=== PATIENT | male | born 1985 | race Caucasian/White ===

== ENCOUNTER 2021-08-04 18:32 | Emergency (ER) | payer MEDICAID ==
[~2021-08-04] VITALS: Ht 177.8 cm; Wt 81.8 kg
[2021-08-04] MEDS ORDERED: normal saline 1000ML IV soln IVB STA (19:14)
[2021-08-04] MEDS ORDERED: diphenhydrAMINE 50 mg/ml inj IV ONE (19:15)
[2021-08-04] MEDS ORDERED: famotidine/PF 10 mg/ml inj IV ONE (19:15)
[2021-08-04] MEDS ORDERED: methylPREDNISolone sod succ 125mg/2ml vial IV ONE (19:15)
[2021-08-04] MEDS ORDERED: epiNEPHrine 1 mg/ml inj SQ ONE (19:15)
[2021-08-04 19:30] LABS: BASOPHILS % (AUTO) 0.1 % (0-1); EOSINOPHILS # (AUTO) 0.1 X10'3 (0-0.9); EOSINOPHILS % (AUTO) 0.6 % (0-6); HEMATOCRIT 50.4 % (42.0-52.0); HEMOGLOBIN 17.5 g/dl (14.0-17.9); LYMPHOCYTES # (AUTO) 1.5 X10'3 (1.1-4.8); LYMPHOCYTES % (AUTO) 8.8 % (21-51); MEAN CORPUSCULAR HEMOGLOBIN 29.4 PG (27.0-31.0); MEAN CORPUSCULAR HGB CONC 34.8 g/dL (33.0-36.5); MEAN CORPUSCULAR VOLUME 84.5 FL (78-98); MEAN PLATELET VOLUME 7.9 FL (7.4-10.4); MONOCYTES # (AUTO) 0.7 X10'3 (0-0.9); NEUTROPHILS # (AUTO) 14.6 X10'3 (1.8-7.7); NEUTROPHILS % (AUTO) 86.5 % (42-75); PLATELET COUNT 289 X10'3 (140-440); RED BLOOD COUNT 5.96 X10'6 (4.70-6.10); RED CELL DISTRIBUTION WIDTH 13.2 % (11.5-14.5); WHITE BLOOD COUNT 16.9 X10'3 (4.5-11.0)
[2021-08-04 19:43] LABS: ALANINE AMINOTRANSFERASE 26 U/L (12-78); ALBUMIN 3.3 G/DL (3.4-5.0); ALBUMIN/GLOBULIN RATIO 1.1 (1.1-1.5); ALKALINE PHOSPHATASE 56 IU/L (46-116); ANION GAP 8 (8-16); ASPARTATE AMINO TRANSFERASE 18 U/L (10-37); BILIRUBIN,TOTAL 0.9 MG/DL (0.1-1.0); BLOOD UREA NITROGEN 20 MG/DL (7-18); BUN/CREATININE RATIO 16.4 (5.4-32.0); CALCIUM 7.8 MG/DL (8.5-10.1); CHLORIDE 100 MMOL/L (99-107); CREATININE 1.22 MG/DL (0.60-1.10); GLUCOSE 174 MG/DL (70-104); POTASSIUM 3.8 MMOL/L (3.5-5.1); SODIUM 134 MMOL/L (135-145); TOTAL CARBON DIOXIDE 25.8 MMOL/L (24-32); TOTAL PROTEIN 6.2 G/DL (6.4-8.2); eGFR 67 ML/MIN
[2021-08-04 20:44] VITALS: BP 132/84
[2021-08-04] MEDS ORDERED: DIPH25CA83 PO (21:13)
[2021-08-04] MEDS ORDERED: FAMO-128 PO (21:13)
== END 2021-08-04 21:35 | disposition home or self-care (01) ==
LOC: ER 18:33
DX: T78.2XXA Anaphylactic shock, unspecified, initial encounter (principal); T40.1X1A Poisoning by heroin, accidental (unintentional), initial encounter; Y92.89 Other specified places as the place of occurrence of the external cause; F17.210 Nicotine dependence, cigarettes, uncomplicated; F15.10 Other stimulant abuse, uncomplicated; Z91.010 Allergy to peanuts
CPT/HCPCS: 36415; 80053; 85025; 93005; 96361; 96372; 96374; 96375; 99291; J0171; J1200; J2930; J3490; J7030

== ENCOUNTER 2024-03-18 11:32 | Emergency (ER) | payer MEDICAID ==
[~2024-03-18] VITALS: Ht 188 cm; Wt 92.7 kg
[~2024-03-18 11:32] MED LIST: DIPH25CA83 PO; FAMO-128 PO
[2024-03-18 11:42] VITALS: TEMP 98.1
[2024-03-18 12:31] VITALS: BP 123/89; PULSE 95; RESP 18; O2SAT 98
== END 2024-03-18 12:33 | disposition home or self-care (01) ==
LOC: ER 11:32
DX: S01.01XD Laceration without foreign body of scalp, subsequent encounter (principal); F15.90 Other stimulant use, unspecified, uncomplicated; Z91.010 Allergy to peanuts; Z79.899 Other long term (current) drug therapy; X58.XXXD Exposure to other specified factors, subsequent encounter
CPT/HCPCS: 99281